=== PATIENT | male | born 1965 | race Caucasian/White ===

== ENCOUNTER 2020-12-10 16:01 | Inpatient (IN) ==
[2020-12-10 19:21] LABS: ABS Lymphocytes 0.8 10^3/ul (1.0-4.8); ABS Monocytes 0.4 10^3/ul (0-0.8); ABS Neutrophils 4.8 10^3/ul (1.5-7.7); Eosinophil % 0.1 %; Hematocrit 43 % (42-52); Hemoglobin 15.2 g/dL (14.0-18.0); Lymphocyte % 13.1 %; Mean Corpuscular HGB Conc 36 g/dL (31-36); Mean Corpuscular Hemoglobin 31 pg (27-31); Mean Corpuscular Volume 87 fL (80-94); Mean Platelet Volume 9.3 fL (7.4-10.4); Platelet Count 120 10^3/uL (150-450); Red Blood Count 4.89 10^6 /uL (4.18-5.48); Red Cell Distribution Width 13 % (10-15)
[2020-12-10 19:28] LABS: Activated Partial Thrombo Time 28.7 seconds (26.0-38.0); INR 1.28 (0.86-1.15)
[2020-12-10 19:46] LABS: Albumin 3.8 g/dL (3.2-5.2); Anion Gap 11 mmol/L (2-11); CO2 Carbon Dioxide 27 mmol/L (22-32); Calcium 8.3 mg/dL (8.6-10.3); Chloride 99 mmol/L (101-111); Potassium 3.4 mmol/L (3.5-5.0); Sodium 137 mmol/L (135-145)
[2020-12-10 19:52] LABS: ALT 28 U/L (7-52); AST 34 U/L (13-39); Albumin/Globulin Ratio 1.2 (1-3); Alkaline Phosphatase 38 U/L (35-149); Blood Urea Nitrogen 14 mg/dL (6-24); Globulin 3.1 g/dL (2-4); Glucose 114 mg/dL (70-100); LDH 361 U/L (140-271); Total Protein 6.9 g/dL (6.4-8.9)
[2020-12-10 20:36] LABS: Venous Bicarbonate HCO3 28.4 mmol/L (24-28)
[2020-12-10 20:47] LABS: Influenza A Molecular Negative (Negative); Influenza B Molecular Negative (Negative)
[2020-12-10 20:48] LABS: Ferritin > 1500.0 ng/mL (24-336)
[2020-12-10] MEDS ORDERED: Iohexol 350 (CONTRAST) 500 ML MDV IV ONE (21:20)
[2020-12-10] MEDS ORDERED: Ondansetron 4 mg VIAL 2 MG/ML 2 ml VIAL IV PRN (21:25)
[2020-12-10 22:09] LABS: Troponin I 0.01 ng/mL (<0.03)
[2020-12-10] MEDS: Potassium Chlor 20 meq TAB.ER PO ONE (23:26)
[2020-12-10] MEDS: Heparin 5000 UNITS/ML 1 mL VIAL SUBCUT SCH (23:26)
[2020-12-11] MEDS ORDERED: Remdesivir 100 mg Vial 200 MG in NS 0.9% 250 ml 210 ML IV ONE
[2020-12-11] MEDS: Heparin 5000 UNITS/ML 1 mL VIAL SUBCUT SCH ×2 (05:48→14:57)
[2020-12-11 07:37] LABS: ABS Lymphocytes 0.5 10^3/ul (1.0-4.8); ABS Monocytes 0.2 10^3/ul (0-0.8); Hematocrit 41 % (42-52); Hemoglobin 14.7 g/dL (14.0-18.0); Lymphocyte % 12.3 %; Mean Corpuscular HGB Conc 36 g/dL (31-36); Mean Corpuscular Hemoglobin 31 pg (27-31); Mean Corpuscular Volume 87 fL (80-94); Nucleated Red Blood Cells % 0.1; Platelet Count 125 10^3/uL (150-450); Red Blood Count 4.67 10^6 /uL (4.18-5.48); Red Cell Distribution Width 13 % (10-15); White Blood Count 3.7 10^3/uL (3.5-10.8)
[2020-12-11 07:45] LABS: Activated Partial Thrombo Time 29.9 seconds (26.0-38.0); INR 1.19 (0.86-1.15)
[2020-12-11 07:52] LABS: Albumin 3.5 g/dL (3.2-5.2); Calcium 8.5 mg/dL (8.6-10.3); Globulin 3.4 g/dL (2-4); Potassium 4.1 mmol/L (3.5-5.0); Total Bilirubin 0.6 mg/dL (0.2-1.0); Total Protein 6.9 g/dL (6.4-8.9)
[2020-12-11] MEDS ORDERED: Enoxaparin 60 MG/0.6 ML SYR SUBCUT SCH (19:00)
[2020-12-11] MEDS: Remdesivir 100 mg Vial 100 MG in NS 0.9% 250 ml 230 ML IV SCH (20:39)
[2020-12-11] MEDS: Enoxaparin 60 MG/0.6 ML SYR SUBCUT SCH (20:42)
[2020-12-11] MEDS: Aspirin EC 81 mg TAB.EC (enteric coated) PO SCH (20:45)
[2020-12-12 05:40] LABS: INR 1.16 (0.86-1.15)
[2020-12-12 05:52] LABS: Albumin 3.4 g/dL (3.2-5.2); Albumin/Globulin Ratio 1.1 (1-3); Calcium 8.9 mg/dL (8.6-10.3); Globulin 3.1 g/dL (2-4); Total Bilirubin 0.5 mg/dL (0.2-1.0); Total Protein 6.5 g/dL (6.4-8.9)
[2020-12-12] MEDS: Enoxaparin 60 MG/0.6 ML SYR SUBCUT SCH ×2 (07:35→20:21)
[2020-12-12] MEDS: Aspirin EC 81 mg TAB.EC (enteric coated) PO SCH (20:20)
[2020-12-12] MEDS: Remdesivir 100 mg Vial 100 MG in NS 0.9% 250 ml 230 ML IV SCH (21:41)
[2020-12-13 07:42] LABS: ABS Lymphocytes 1.1 10^3/ul (1.0-4.8); ABS Monocytes 0.9 10^3/ul (0-0.8); ABS Neutrophils 8.4 10^3/ul (1.5-7.7); Hematocrit 40 % (42-52); Hemoglobin 14.3 g/dL (14.0-18.0); Lymphocyte % 10.7 %; Mean Corpuscular HGB Conc 36 g/dL (31-36); Mean Corpuscular Hemoglobin 31 pg (27-31); Mean Corpuscular Volume 87 fL (80-94); Mean Platelet Volume 9.2 fL (7.4-10.4); Nucleated Red Blood Cells % 0.1; Platelet Count 196 10^3/uL (150-450); Red Blood Count 4.59 10^6 /uL (4.18-5.48); Red Cell Distribution Width 13 % (10-15); White Blood Count 10.4 10^3/uL (3.5-10.8)
[2020-12-13 07:57] LABS: Albumin 3.3 g/dL (3.2-5.2); Albumin/Globulin Ratio 1.1 (1-3); Calcium 8.7 mg/dL (8.6-10.3); Potassium 3.7 mmol/L (3.5-5.0); Total Bilirubin 0.5 mg/dL (0.2-1.0); Total Protein 6.3 g/dL (6.4-8.9)
[2020-12-13 07:59] LABS: INR 1.18 (0.86-1.15)
[2020-12-13] MEDS: Enoxaparin 60 MG/0.6 ML SYR SUBCUT SCH (08:52)
[2020-12-13 12:03] VITALS: BP 129/67
== END 2020-12-13 15:50 | disposition home or self-care (01) | DRG 137 ==
LOC: ED 16:01 → MED 21:19 → SUATTDRO 21:19 → MED 12-11 05:24
PROVIDERS: ADMIT Internal Medicine; ATTEND Internal Medicine